=== PATIENT | male | born 1980 | race Caucasian/White ===

== ENCOUNTER → 2017-02-23 | Outpatient (CLI) | payer BC ==
[~2017-02-23] MED LIST: CIPR1TAB11 PO; METR250T PO; OPTIRAY 320 IV PRN; OXYC-57 PO
--- NOTE | 2017-02-23 09:02 | DIAGNOSTIC IMAGING REPORT ---
CT OF THE PELVIS WITH CONTRAST CLINICAL HISTORY: Perirectal abscess. COMPARISON STUDY: No previous studies for comparison. TECHNIQUE: Axial images of the pelvis were obtained following intravenous injection of 94 cc of Optiray 320 IV. Oral contrast was administered. FINDINGS: Note is made of a 2 x 2 x 1.1 cm rim-enhancing left perianal fluid collection consistent with a small perianal abscess. There is no supralevator component. No additional abscesses are identified on this examination. Evaluation for perirectal/perianal fistulae is suboptimal given CT technique. Caliber and wall thickness of visualized small and large bowel are normal. The appendix is normal. There is no suspicious osseous lesion. A mildly enlarged right inguinal lymph node measures 1.8 x 1.2 cm. This is likely reactive. IMPRESSION: 1. 2 x 2 x 1.1 cm rim-enhancing left perianal fluid collection consistent with a small perianal abscess. No additional abscesses identified. 2. Mildly enlarged right inguinal lymph node which is likely reactive. Electronically signed by: Dane Saldivar M.D. 02/23/2017 9:01 AM Dictated Date/Time: 02/23/2017 8:52 AM
== END | disposition home or self-care (01) ==
LOC: C.CTS 08:11
PROVIDERS: ATTEND Surgery
DX: K61.1 Rectal abscess (principal); R59.0 Localized enlarged lymph nodes

== ENCOUNTER 2017-02-24 12:05 | Emergency (ER) | payer BC ==
[~2017-02-24] VITALS: Ht 162.6 cm; Wt 74.0 kg
[2017-02-24 12:10] VITALS: TEMP 36.9; Ht 162.6 cm; Wt 74.0 kg
[2017-02-24] MEDS ORDERED: SODIUM CHLORIDE 0.9% 1000ML 1,000 ML IV STA (12:39)
[2017-02-24] MEDS ORDERED: ONDANSETRON INJ 2 MG/ML 2 ML VIAL IV STA (12:39)
--- NOTE | 2017-02-24 13:03 | EMERGENCY ROOM VISIT NOTE ---
History Report prepared by Flora: Clark Justin Under the Supervision of: Dr. Jayme Barriga M.D. First contact with patient: 12:32 Chief Complaint: RECTAL PAIN Stated Complaint: RECTAL ABSCESS Nursing Triage Summary: pt to the ED with rectal abcess and is unable to take pain at this time. pt is being tx by surgeon and just recently had CT scan that shows it has grown History of Present Illness The patient is a 36 year old male who presents to the Emergency Room with complaints of worsening left sided rectal pain that began a week ago. He rates his pain as a 9/10 in severity and states that it radiates to his lower back. The patient states that he has been intermittently experiencing rectal pain due to a lump on his rectum for a year. He states that the pain worsened and has been constant for the last week. He reports that throughout the week he has only been able to eat four meals. The patient states he also has been experiencing chills and hot flashes. The patient states that he went to his practitioner four days ago and was diagnosed with an abscess. He reports that he had blood work done and was sent home with antibiotics, a stool softener, and Oxycodone. The patient states that he went to Dr. Tavarez for inspection of the abscess three days ago. The patient states that the lump decreased in size two days ago, but states that another lump appeared next to it. He states that he had a CT scan done yesterday at [facility], but reports he did not get the results yet. The patient states that he talked to Dr. Tavarez this morning who told him to report to the ED. The patient denies drainage from the abscess. Source of History: patient Onset: a week ago Position: other (left sided rectal) Symptom Intensity: 9/10 Timing: worsening Modifying Factors (Relieving): other (Oxycodone, antibiotics, stool softener ) Associated Symptoms: + chills, + back pain (lower) Note: Additional symptoms: hot flashes. Review of Systems See HPI for pertinent positives & negatives. A total of 10 systems reviewed and were otherwise negative. Past Medical & Surgical Medical Problems: (1) Rectal abscess Family History Cancer Social History Smoking Status: Former Smoker Alcohol Use: occasionally Drug Use: none Marital Status: Housing Status: lives with significant other Occupation Status: employed Current/Historical Medications Scheduled Ciprofloxacin Tab (Cipro), Unknown Dose PO BID Scheduled PRN Oxycodone/Acetaminophen 5MG/325MG (Percocet 5MG/325MG), 1-2 TABLETS PO Q4H PRN for Pain Miscellaneous Medications Metronidazole (Flagyl), Unknown Dose PO Allergies Coded Allergies: Penicillins (Unverified Allergy, Unknown, ., 02/24/17) Physical Exam Vital Signs Date Time Temp Pulse Resp B/P (MAP) Pulse Ox O2 Delivery O2 Flow Rate FiO2 02/24/17 14:31 86 17 124/78 98 02/24/17 13:51 91 17 150/95 97 Room Air 02/24/17 13:18 83 16 125/75 96 Room Air 02/24/17 12:10 36.9 98 18 130/88 97 Physical Exam GENERAL: Patient is in no acute distress. HEENT: No acute trauma, normocephalic atraumatic, mucous membranes moist, no nasal congestion, no scleral icterus. NECK: No stridor, no adenopathy, no meningismus, trachea is midline. LUNGS: Clear to auscultation bilaterally, no wheeze, no rhonchi, breath sounds equal. HEART: Without murmurs gallops or rubs, regular rate and rhythm. ABDOMEN: Soft, nontender, bowel sounds positive, no hernias, no peritonitis. EXTREMITIES: No cyanosis or edema, full range of motion of all the joints without pain or difficulty, no signs for acute trauma. NEUROLOGIC: Oriented x 3, no acute motor or sensory deficits, no focal weakness. SKIN: No rash, no jaundice, no diaphoresis RECTAL: 3-4 cm area of swelling to the left perianal region that is quite tender and not draining. Medical Decision & Procedures Laboratory Results 02/24/17 13:01 Red Blood Count 5.27, Mean Corpuscular Volume 84.4, Mean Corpuscular Hemoglobin 30.4, Mean Corpuscular Hemoglobin Concent 36.0, Mean Platelet Volume 10.1, Neutrophils (%) (Auto) 80.3, Lymphocytes (%) (Auto) 11.2, Monocytes (%) (Auto) 7.7, Eosinophils (%) (Auto) 0.4, Basophils (%) (Auto) 0.2, Neutrophils # (Auto) 7.57, Lymphocytes # (Auto) 1.06, Monocytes # (Auto) 0.73, Eosinophils # (Auto) 0.04, Basophils # (Auto) 0.02 02/24/17 13:01 Test 02/24/17 13:01 White Blood Count 9.44 K/uL (4.8-10.8) Red Blood Count 5.27 M/uL (4.7-6.1) Hemoglobin 16.0 g/dL (14.0-18.0) Hematocrit 44.5 % (42-52) Mean Corpuscular Volume 84.4 fL (80-100) Mean Corpuscular Hemoglobin 30.4 pg (25-34) Mean Corpuscular Hemoglobin Concent 36.0 g/dl (32-36) Platelet Count 201 K/uL (130-400) Mean Platelet Volume 10.1 fL (7.4-10.4) Neutrophils (%) (Auto) 80.3 % Lymphocytes (%) (Auto) 11.2 % Monocytes (%) (Auto) 7.7 % Eosinophils (%) (Auto) 0.4 % Basophils (%) (Auto) 0.2 % Neutrophils # (Auto) 7.57 K/uL (1.4-6.5) Lymphocytes # (Auto) 1.06 K/uL (1.2-3.4) Monocytes # (Auto) 0.73 K/uL (0.11-0.59) Eosinophils # (Auto) 0.04 K/uL (0-0.5) Basophils # (Auto) 0.02 K/uL (0-0.2) RDW Standard Deviation 38.0 fL (36.4-46.3) RDW Coefficient of Variation 12.5 % (11.5-14.5) Immature Granulocyte % (Auto) 0.2 % Immature Granulocyte # (Auto) 0.02 K/uL (0.00-0.02) Anion Gap 9.0 mmol/L (3-11) Est Creatinine Clear Calc Drug Dose 87.9 ml/min Estimated GFR () 103.9 Estimated GFR (Non- 89.6 BUN/Creatinine Ratio 11.6 (10-20) Calcium Level 9.4 mg/dl (8.5-10.1) Laboratory results reviewed by me. Medications Administered Medications (Trade) Dose Ordered Sig/Arabella Route Start Time Stop Time Status Last Admin Dose Admin Morphine Sulfate (MoRPHine SULFATE INJ) 6 mg Q15M PRN IV 02/24/17 12:45 02/24/17 15:39 DC 02/24/17 14:24 6 MG Ondansetron HCl (Zofran Inj) 4 mg NOW STAT IV 02/24/17 12:39 02/24/17 12:43 DC 02/24/17 13:15 4 MG Sodium Chloride 1,000 ml @ 999 mls/hr Q1H1M STAT IV 02/24/17 12:39 02/24/17 13:39 DC 02/24/17 13:16 999 MLS/HR ED Course 1237: The patient was evaluated in room C02B. A complete history and physical exam was performed. 1239: Ordered Sodium Chloride 1000 ml @ 999 mls/hr Iv, Zofran Injection 4 mg Iv. \ 1245: Ordered Morphine Sulfate 6 mg IV. 1246: I paged Dr. Tavarez, [facility]. 1248: [facility] He referred the case to the production zone leader surgeon. 1249: I paged Dr. Mayo, [facility]. 1304: I discussed the patients case with Dr. Mayo, [facility]. She understands the patients condition and agrees to evaluate the patient. 1322: Ordered Lidocaine/Epinephrine 20 ml IV. 1402: I reevaluated the patient and he is resting comfortably. 1415: I discussed the patients case with Dr. Mayo, [facility]. She reports that the patient is ready to be discharged. 1418: Reevaluated the patient. Discussed results and discharge instructions: He verbalized understanding and agreement. The patient is ready for discharge. Medical Decision The patient is a 36 year old male who presents to the Emergency Room with complaints of worsening left sided rectal pain that began a week ago. Differential diagnoses considered include perirectal or perianal abscess, failed outpatient treatment, electrolyte imbalance, anemia, Chron's disease There is no leukocytosis or concerning anemia. No significant electrolyte abnormality or kidney failure. On exam, the patient was not febrile or toxic. He did appear to have a left-sided perianal abscess. I did review the CT results from yesterday. The abscess is 2 x 2 x 1 in size. The patient received IV morphine, IV Zofran and IV saline, he is resting more comfortably. I spoke with Dr. Mayo of general surgery. The patient was seen in the ED by Dr. Mayo, the abscess was drained. The patient is being discharged home. Medication Reconcilliation Current Medication List: was personally reviewed by me Blood Pressure Screening Patient's blood pressure: Elevated blood pressure Blood pressure disposition: Elevated BP felt to be situational Consults Time Called: 1246 Consulting Physician: T[facility] Surgery Returned Call: 1248 I discussed the patients case with Tiffany Pearson Surgery. He referred the case to the production zone leader surgeon. Additional Consults: Time Called: 1249 Consulted Physician: Luis Manuel Mack[facility] Surgery Returned Call: 1304 Additional Comments: 1304: I discussed the patients case with Tiffany Mackenzie. She understands the patients condition and agrees to evaluate the patient. Time Called: 1415 Consulted Physician: Tiffany Mackenzie Surgery Returned Call: 1415 Additional Comments: I discussed the patients case with Tiffany Mackenzie. She reports that the patient is ready to be discharged. Impression Primary Impression: Perirectal abscess Scribe Attestation The scribe's documentation has been prepared under my direction and personally reviewed by me in its entirety. I confirm that the note above accurately reflects all work, treatment, procedures, and medical decision making performed by me. Departure Information Dispostion Home / Self-Care Prescriptions Oxycodone/Acetaminophen 5MG/325MG (PERCOCET 5MG/325MG) Tab 1-2 TABLETS PO Q4H Y for Pain, #30 TAB Prov: Meghan Mayo MD 02/24/17 Referrals Edgard Freeman D.O. (PCP) Patient Instructions My [facility] Additional Instructions continue the antibiotics pain meds as prescribed by Dr. Mayo follow with surgery in the office this week return for worsening pain or fever lab testing today was all ok
[2017-02-24] MEDS ORDERED: CIPR1TAB11 PO (13:04)
[2017-02-24] MEDS ORDERED: METR250T PO (13:04)
[2017-02-24] MEDS: MoRPHine SULFATE 10 MG/ML CARP/VIAL IV PRN ×2 (13:17→14:24)
[2017-02-24] MEDS ORDERED: LIDOCAINE/EPINEPHRINE 1% 20 ML VIAL ONE (13:22)
[2017-02-24 13:39] LABS: BASO % 0.2 %; BASO ABS # 0.02 K/uL (0-0.2); EOS % 0.4 %; EOS ABS # 0.04 K/uL (0-0.5); HEMATOCRIT 44.5 % (42-52); IG# 0.02 K/uL (0.00-0.02); LYMPH % 11.2 %; LYMPH ABS # 1.06 K/uL (1.2-3.4); MEAN CELL VOLUME 84.4 fL (80-100); MEAN CORPUSCULAR HEMOGLOBIN 30.4 pg (25-34); MEAN PLATELET VOLUME 10.1 fL (7.4-10.4); MONO % 7.7 %; MONO ABS # 0.73 K/uL (0.11-0.59); NEUT % 80.3 %; NEUT ABS # 7.57 K/uL (1.4-6.5); PLATELET COUNT 201 K/uL (130-400); RED CELL DISTRIBUTION WIDTH CV 12.5 % (11.5-14.5); WHITE BLOOD COUNT 9.44 K/uL (4.8-10.8)
[2017-02-24] MEDS ORDERED: OXYC-57 PO ×2 (13:47)
--- NOTE | 2017-02-24 13:49 | Discharge Instructions ---
Discharge Instructions Date of Service Feb 24, 2017. Admission Reason for Admission: Rectal Abscess Discharge Discharge Diagnosis / Problem: perirectal abscess drainage Discharge Goals Goal(s): Decrease discomfort Activity Recommendations Activity Limitations: resume your previous activity Lifting Limitations: none Exercise/Sports Limitations: gradually increase as tolerated May Resume Sexual Activity: when tolerated Shower/Bathe: tomorrow Driving or Machine Use: no limitations (if off narcotics) . Instructions / Follow-Up Instructions / Follow-Up Remove gauze packing in 24 hrs while sitting in tub. Sit in sitz bath daily and massage wound to encourage drainage. Keep gauze dressing over the outside to collect drainage. Change daily. Current Hospital Diet Patient's current hospital diet: Discharge Diet Recommended Diet: Regular Diet Procedures Procedures Performed: incision and drainage of perirectal abscess Pending Studies Studies pending at discharge: no Medical Emergencies . Who to Call and When: Medical Emergencies: If at any time you feel your situation is an emergency, please call 911 immediately. . Non-Emergent Contact Non-Emergency issues call your: Surgeon (call [phone] to schedule f/u appt for 1-2 wks) . "Provider Documentation" section prepared by Meghan Mayo. . VTE Core Measure Inpt VTE Proph given/why not?: Treatment not indicated [place] Drug Monitoring Program Search Results: patient reviewed within database, no issues identified
--- NOTE | 2017-02-24 13:53 | [facility] Operative Report ---
Operative Report Operative Date Feb 24, 2017. Pre-Operative Diagnosis left perirectal abscess Post-Operative Diagnosis same Procedure(s) Performed incision and drainage of left perirectal abscess Surgeon Meghan Mayo M.D. Burner Operator Surgeon(s) none Estimated Blood Loss none Findings 2 cm pus filled abscess Specimens none Drains none Anesthesia local Complication(s) None Disposition home Indications 36 yr old man with ongoing perirectal abscess for about 1 wk not improving on antibiotics. Began to feel chills, pain worsened. CT yesterday showed 2 cm abscess left perirectal. Consented for drainage at bedside. Description of Procedure The left perirectal area was prepped with betadine. 1%lidocaine with epi was used to anesthetize the palpable abscess. An incision was made and tunnelled 1 cm deep to the abscess cavity. Copious pus was evacuated. The wound was irrigated and packed with nugauze. A sterile gauze dressing was applied. He tolerated the procedure well. I attest to the content of the Intraoperative Record and any orders documented therein. Any exceptions are noted below.
[2017-02-24 13:56] LABS: CALCIUM 9.4 mg/dl (8.5-10.1); CREATININE 1.05 mg/dl (0.60-1.40); POTASSIUM 3.9 mmol/L (3.5-5.1)
[2017-02-24 14:31] VITALS: BP 124/78; PULSE 86; O2SAT 98
== END 2017-02-24 14:34 | disposition home or self-care (01) ==
LOC: C.EDB 12:06 → C.EDC 14:34
DX: K61.1 Rectal abscess (principal); Z87.891 Personal history of nicotine dependence